=== PATIENT | male | born 1960 | race Caucasian/White ===

== ENCOUNTER 2021-02-21 13:29 | Outpatient (CLI) | payer OTHER | END 2021-02-21 13:30 | disposition home or self-care (01) | LOC: CSHMRI 13:29 | PROVIDERS: ATTEND Orthopaedic Surgery | DX: S46.212A Strain of muscle, fascia and tendon of other parts of biceps, left arm, initial encounter (principal); M67.824 Other specified disorders of tendon, left elbow ==

== ENCOUNTER 2021-10-12 09:02 | Outpatient (CLI) | payer OTHER ==
[2021-10-12] MEDS ORDERED: Magnevist 469MG/ML 20 ML VIAL ONE (13:35)
== END 2021-10-12 09:03 | disposition home or self-care (01) ==
LOC: CSHMRI 09:02
PROVIDERS: ATTEND Urology
DX: R97.20 Elevated prostate specific antigen [PSA] (principal)
CPT/HCPCS: 72197; 82565; A9579

== ENCOUNTER 2022-10-22 13:09 | Outpatient (CLI) | payer OTHER ==
[2022-10-22 14:11] LABS: Hematocrit 42.5 % (38.8-50.0); Mean Corpuscular HGB CONC 32.9 g/dL (32.0-36.0); Mean Corpuscular Hemoglobin 30.9 pg (27.0-33.0); Mean Corpuscular Volume 93.8 fl (81.2-95.1); Mean Platelet Volume 9.3 fl (7.4-10.4); Platelet Count 260 10x3/uL (150-450); RBC Distribution Width 12.7 % (11.5-14.5); Red Blood Cell (RBC) Count 4.53 10x6/uL (4.32-5.72); White Blood Cell (WBC) Count 6.1 10x3/uL (3.5-10.5)
[2022-10-22 14:45] LABS: Anion Gap 12 mmol/L (10-20); BUN (Urea Nitrogen) 13 mg/dL (8.4-25.7); Calc. Creatinine Clearance 0 mL/min (70-130); Calcium 9.4 mg/dL (7.8-10.44); Carbon Dioxide 28 mmol/L (23-31); Chloride 104 mmol/L (98-107); Estimated GFR 100; Glucose 97 mg/dL (80-115); Potassium 4.3 mmol/L (3.5-5.1); Sodium 140 mmol/L (136-145)
== END 2022-10-22 13:10 | disposition home or self-care (01) ==
LOC: CSHLAB 13:09
PROVIDERS: ATTEND Podiatrist Foot & Ankle Surgery
DX: Z01.818 Encounter for other preprocedural examination (principal)
CPT/HCPCS: 80048; 85027; 93005; 93010

== ENCOUNTER 2022-10-31 09:55 | Day surgery (SDC) | payer OTHER ==
[2022-10-22 13:43] VITALS: BMI 28.0
[2022-10-31] MEDS ORDERED: Bupivacaine PF 0.5% 30 ML VIAL ONE (10:31)
[2022-10-31] MEDS ORDERED: Clindamycin/D5W 600 mg/50 ml Premix Bag ONE (11:37)
[2022-10-31] MEDS ORDERED: PROPOFOL 20 ML ONE (12:35)
[2022-10-31] MEDS ORDERED: fentaNYL 50 mcg/mL 1 mL Vial ONE (12:35)
[2022-10-31] MEDS ORDERED: Dexamethasone 4 mg/ml Vial ONE (12:36)
[2022-10-31] MEDS ORDERED: Lidocaine 1% PF 5 ML VIAL ONE (12:36)
[2022-10-31] MEDS ORDERED: Ondansetron PF 4 MG/2 ML Vial ONE (12:36)
[2022-10-31] MEDS ORDERED: Ketorolac Tromethamine 30 MG/ML VIAL ONE (13:19)
== END 2022-10-31 14:55 | disposition home or self-care (01) ==
LOC: CSHSDC 09:55
PROVIDERS: ATTEND Podiatrist Foot & Ankle Surgery
PROC: 0QBQ0ZZ Excision of Right Toe Phalanx, Open Approach (ICD-10-PCS; principal; 2022-10-31)
DX: M20.11 Hallux valgus (acquired), right foot (principal); Z88.0 Allergy status to penicillin
CPT/HCPCS: C1713; C1769; J1100; J1885; J2405; J2704; J3010; J3490; S0020

== ENCOUNTER 2023-10-15 12:03 | Outpatient (CLI) | payer OTHER ==
[~2023-10-15 12:03] MED LIST: Magnevist 469MG/ML 20 ML VIAL ONE
== END 2023-10-15 12:04 | disposition home or self-care (01) ==
LOC: CSHMRI 12:03
PROVIDERS: ATTEND Urology
DX: C61 Malignant neoplasm of prostate (principal)
CPT/HCPCS: 72197; 82565; A9579

== ENCOUNTER 2024-09-24 12:14 | Outpatient (CLI) | payer OTHER ==
[2024-09-24] MEDS ORDERED: Gadobenate Dimeglumine 2 ML, Sodium Chloride 0.9% 250 ML 10 ML, Iopamidol 8 ML, Lidocai... FS ONE (13:30)
== END 2024-09-24 12:15 | disposition home or self-care (01) ==
LOC: CSHRAD 12:14
PROVIDERS: ATTEND Orthopaedic Surgery
DX: M25.512 Pain in left shoulder (principal); Z98.890 Other specified postprocedural states; M24.812 Other specific joint derangements of left shoulder, not elsewhere classified; S43.432A Superior glenoid labrum lesion of left shoulder, initial encounter; M75.112 Incomplete rotator cuff tear or rupture of left shoulder, not specified as traumatic
CPT/HCPCS: 23350; 77002; A9577; J0166; J7050; Q9967